=== PATIENT | female | born 1965 | race Two or more races ===

== ENCOUNTER → 2017-11-25 | Day surgery (SDC) | payer OTHER ==
[~2017-11-25] MED LIST: ANASTROZOLE1 MG PO
== END | disposition home or self-care (01) ==
LOC: CIR.AMB 07:00
DX: N62 Hypertrophy of breast (principal)

== ENCOUNTER 2022-03-02 06:19 | Day surgery (SDC) | payer OTHER ==
[~2022-03-02] VITALS: Ht 160 cm; Wt 72.6 kg
== END 2022-03-02 19:15 | disposition home or self-care (01) ==
LOC: CIR.AMB 06:19
PROVIDERS: ATTEND Surgery
DX: D05.11 Intraductal carcinoma in situ of right breast (principal); R59.0 Localized enlarged lymph nodes; Z17.0 Estrogen receptor positive status [ER+]; Z20.822 Contact with and (suspected) exposure to COVID-19; K21.9 Gastro-esophageal reflux disease without esophagitis; Z42.1 Encounter for breast reconstruction following mastectomy
CPT/HCPCS: 19303; 19340; 38525; 78195; L8699; A9541